=== PATIENT | male | born 1935 | race African-American/Black ===

== ENCOUNTER 2017-02-19 20:52 | Emergency (ER) | payer OTHER ==
[~2017-02-19] VITALS: Ht 170.2 cm; Wt 82.0 kg
[~2017-02-19 20:52] MED LIST: ATOR20TA65 PO; LISINOPRIL; METOPOROL; MOME13HF INH; SPIRIVA PO
[2017-02-19 21:49] LABS: BASOPHILS % 1.2 % (0.0-2.0); EOSINOPHILS % 1.3 % (0.0-5.0); HEMATOCRIT. 41.6 % (42.0-52.0); HEMOGLOBIN. 13.8 g/dL (14.0-18.0); LYMPHOCYTES % 22.6 % (20.0-50.0); MEAN CORPUSCULAR HEMOGLOBIN 29.3 pg (28.0-32.0); MEAN CORPUSCULAR VOLUME 88.3 fL (80.0-94.0); MEAN PLATELET VOLUME 9.5 fl (7.4-10.4); MONOCYTES % 8.8 % (2.0-8.0); NEUTROPHILS % 66.1 % (40.0-76.0); PLATELET 140 x1000/uL (130-400); RED BLOOD CELL COUNT 4.71 mill/uL (4.7-6.1); RED CELL DISTRIBUTION WIDTH 15.7 % (11.6-14.6)
[2017-02-19 21:50] LABS: INR 1.2
[2017-02-19 21:53] LABS: CHLORIDE 102 mEq/L (98-107)
[2017-02-19 22:00] LABS: CARBON DIOXIDE 30 mEq/L (21-32)
[2017-02-20 00:38] LABS: CLARITY URINE CLEAR (CLEAR); COLOR URINE YELLOW (YELLOW); KETONES URINE TRACE (NEGATIVE); LEUKOCYTE ESTERASE URINE NEGATIVE (NEGATIVE); NITRITE URINE NEGATIVE (NEGATIVE); OCCULT BLOOD URINE TRACE (NEGATIVE); PH URINE 5.5 (4.5-8.0); PROTEIN URINE 2+ (NEGATIVE); SPECIFIC GRAVITY URINE 1.019 (1.005-1.030)
[2017-02-20] MEDS ORDERED: CLONIDINE 0.2MG TABLET PO ONE (07:15)
[2017-02-20 07:27] LABS: *AMPHETAMINES SCREEN URINE NEGATIVE (NEGATIVE); *BARBITURATES SCREEN URINE NEGATIVE (NEGATIVE); *BENZODIAZEPINES SCREEN URINE NEGATIVE (NEGATIVE); *COCAINE SCREEN URINE NEGATIVE (NEGATIVE); CANNABINOID URINE SCREEN NEGATIVE (NEGATIVE); METHADONE URINE SCREEN NEGATIVE (NEGATIVE); OPIATES URINE SCREEN NEGATIVE (NEGATIVE); PHENCYCLIDINE URINE SCREEN NEGATIVE (NEGATIVE)
[2017-02-20 15:42] VITALS: BP 154/66
== END 2017-02-20 16:58 | disposition home or self-care (01) ==
LOC: ER 20:55
DX: F03.90 Unspecified dementia, unspecified severity, without behavioral disturbance, psychotic disturbance, mood disturbance, and anxiety (principal); J44.9 Chronic obstructive pulmonary disease, unspecified
CPT/HCPCS: 36415; 80053; 80305; 81001; 85025; 85610; 99284

== ENCOUNTER 2017-04-22 11:03 | Emergency (ER) | payer OTHER ==
[~2017-04-22] VITALS: Ht 170.2 cm; Wt 80.0 kg
[2017-04-22] MEDS ORDERED: ALBUTEROL (0.083%) 2.5MG/3ML NEB HHN STA (11:12)
[2017-04-22] MEDS ORDERED: IPRATROPIUM BROMIDE (0.02%) 0.5MG/2.5ML NEB HHN STA (11:12)
[2017-04-22 11:49] LABS: INR 1.1; PROTHROMBIN TIME 11.4 sec (9.4-11.6)
[2017-04-22 11:51] LABS: BASOPHILS % 0.6 % (0.0-2.0); EOSINOPHILS % 1.7 % (0.0-5.0); HEMATOCRIT. 45.9 % (42.0-52.0); HEMOGLOBIN. 14.7 g/dL (14.0-18.0); LYMPHOCYTES % 22.8 % (20.0-50.0); MEAN CORPUSCULAR VOLUME 90.7 fL (80.0-94.0); MEAN PLATELET VOLUME 8.9 fl (7.4-10.4); MONOCYTES % 8.3 % (2.0-8.0); NEUTROPHILS % 66.6 % (40.0-76.0); PLATELET 155 x1000/uL (130-400); RED BLOOD CELL COUNT 5.06 mill/uL (4.7-6.1); RED CELL DISTRIBUTION WIDTH 15.7 % (11.6-14.6)
[2017-04-22 11:54] LABS: CARBON DIOXIDE 28 mEq/L (21-32); CHLORIDE 103 mEq/L (98-107); TROPONIN I 0.02 ng/mL (0.00-0.04)
[2017-04-22] MEDS ORDERED: HYDRALAZINE HCL 50MG TABLET PO ONE (12:15)
[2017-04-22] MEDS ORDERED: PREDNISONE 20MG TABLET PO ONE (12:45)
[2017-04-22 13:29] VITALS: BP 165/76
== END 2017-04-22 14:14 | disposition home or self-care (01) ==
LOC: ER 11:03
DX: J44.1 Chronic obstructive pulmonary disease with (acute) exacerbation (principal); I51.7 Cardiomegaly; I11.9 Hypertensive heart disease without heart failure
CPT/HCPCS: 36415; 71010; 80053; 83880; 84484; 85025; 85610; 93005; 94640; 99285; J7512; J7611

== ENCOUNTER 2017-07-22 14:54 | Emergency (ER) | payer OTHER ==
[~2017-07-22] VITALS: Ht 170.2 cm; Wt 73.0 kg
[2017-07-22 14:55] VITALS: BP 156/93
== END 2017-07-22 15:09 | disposition left against medical advice (07) ==
LOC: ER 14:59
DX: Z53.21 Procedure and treatment not carried out due to patient leaving prior to being seen by health care provider (principal)

== ENCOUNTER 2017-08-02 17:05 | Emergency (ER) | payer OTHER ==
[~2017-08-02] VITALS: Ht 177.8 cm; Wt 85.0 kg
[2017-08-02 17:08] VITALS: BP 183/85
== END 2017-08-02 19:33 | disposition left against medical advice (07) ==
LOC: ER 17:05
DX: F41.9 Anxiety disorder, unspecified (principal); Z53.21 Procedure and treatment not carried out due to patient leaving prior to being seen by health care provider